=== PATIENT | female | born 1990 | race Caucasian/White ===

== ENCOUNTER 2018-04-06 22:09 | Emergency (ER) | payer OTHER, SELFPAY ==
[2018-04-06] MEDS ORDERED: LORAZEPAM 1 MG TABLET ONE (22:41)
[2018-04-06] MEDS ORDERED: levETIRAcetam 500 MG TAB ONE (22:41)
--- NOTE | 2018-04-06 22:43 | ER ---
Nurse's Notes [facility] Name: Elvi Maria Age: 27 yrs Sex: Female : 1990 Arrival Date: 04/06/2018 Time: 22:09 Bed 4 Private MD: Diagnosis: Seizure disorder. 2nd Trimester Presentation: 04/06 22:10 Presenting complaint: EMS states: they were toned out for report of pt having seizures bb pt has hx of seizures and takes Keppra and Ativan but is out of her medications for approx one month she has had other seizures as well but had two seizures today. Pt is currently at [facility] for alcohol addiction after relapsing 3 weeks ago. Pt is 5 months . Transition of care: patient was received from another setting of care (rehabilitation facility). Onset of symptoms is unknown. Risk Assessment: Do you want to hurt yourself or someone else? Patient reports no desire to harm self or others. Initial Sepsis Screen: Does the patient meet any 2 criteria? No. Patient's initial sepsis screen is negative. Does the patient have a suspected source of infection? No. Patient's initial sepsis screen is negative. 22:10 Method Of Arrival: EMS: [facility] bb 22:10 Acuity: IGOR 2 bb 22:15 Care prior to arrival: Medication(s) given: midazolam 5 mg IM. 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 - Social history:: Smoking status: Patient uses tobacco products, smokes one-half pack cigarettes per day, Patient uses alcohol, patient/guardian reports recent binge of alcohol consumption. Patient uses street drugs, marijuana. - Ebola Screening: : No symptoms or risks identified at this time. Screenin:13 Abuse screen: Denies threats or abuse. Denies injuries from another. Nutritional rr5 screening: No deficits noted. Tuberculosis screening: No symptoms or risk factors identified. Fall Risk Secondary diagnosis (15 points) seizures. Assessment: 22:10 General: Appears in no apparent distress. uncomfortable, . Behavior is calm, rr5 cooperative, appropriate for age, Reports chills for. Pain: Denies pain. Neuro: Level of Consciousness is awake, alert, obeys commands, Oriented to person, place, time, situation, Appropriate for age Custom Miller are equal bilaterally Moves all extremities. Reports. Cardiovascular: Denies chest pain, Capillary refill < 3 seconds Patient's skin is warm and dry. Respiratory: Airway is patent. GI: No signs and/or symptoms were reported involving the gastrointestinal system. Abdomen is for 5 months. on lower quadrant palpable hump. : No signs and/or symptoms were reported regarding the genitourinary system. EENT: No signs and/or symptoms were reported regarding the EENT system. Derm: No signs and/or symptoms reported regarding the dermatologic system. Musculoskeletal: No signs and/or symptoms reported regarding the musculoskeletal system. 22:59 Reassessment: Patient appears in no apparent distress at this time. Patient states rr5 feeling better. Patient states symptoms have improved. Vital Signs: 22:15 BP 123 / 87; Pulse 98; Resp 18 S; Temp 98.8(O); Pulse Ox 100% on R/A; Weight 81.65 kg bb (R); Height 5 ft. 7 in. (170.18 cm) (R); Pain 7/10; 22:59 BP 122 / 74; Pulse 85; Resp 16; Pulse Ox 99% on R/A; rr5 22:15 Body Mass Index 28.19 (81.65 kg, 170.18 cm) bb Vitals: 22:52 Heart Tones 158. aa1 ED Course: 22:09 Patient arrived in ED. al2 22:13 Triage completed. bb 22:15 Arm band placed on Patient placed in an exam room, on a stretcher, on pulse oximetry. bb 22:15 Patient has correct armband on for positive identification. Bed in low position. Side rr5 rails up X2. Seizure precautions initiated. 22:15 No provider procedures requiring assistance completed. Patient did not have IV access rr5 during this emergency room visit. 22:17 Danis Desouza MD is Attending Physician. pkl 22:25 Missed attempt(s): 22 gauge in right forearm. Bleeding controlled, band aid applied, aa1 catheter tip intact. 22:34 Noble, Wilver, RN is Primary Nurse. rr5 Administered Medications: 22:39 Drug: Keppra 500 mg Route: PO; rr5 23:13 Follow up: Response: No adverse reaction rr5 22:39 Drug: Ativan 1 mg Route: PO; rr5 23:13 Follow up: Response: No adverse reaction rr5 Outcome: 22:43 Discharge ordered by . colette 23:14 Admitted to rr5 23:14 Discharged to Rehab Facility 23:14 Condition: stable 23:14 Discharge instructions given to patient, Instructed on discharge instructions, follow up and referral plans. medication usage, Demonstrated understanding of instructions, follow-up care, medications, Prescriptions given X 2. 23:15 Patient left the ED. rr5 Signatures: Tammie Sloan RN RN aa1 Danis Desouza MD MD pkl Ballard, Brenda, RN RN bb Love, Angelica al2 Roque, Raymond RN RN rr5 Corrections: (The following items were deleted from the chart) 23:13 22:10 Care prior to arrival: None. darryl andrews
--- NOTE | 2018-04-06 22:43 | EDPHYS ---
Physician Documentation [facility] Name: Elvi Maria Age: 27 yrs Sex: Female : 1990 Arrival Date: 04/06/2018 Time: 22:09 Bed 4 Private MD: ED Physician Danis Desouza HPI: 04/06 22:31 This 27 yrs old Female presents to ER via EMS with unknown complaint. pkl 22:31 Seizure onset: today. The patient has experienced similar episodes in the past, several pkl times. Patient has been out of medications ( Keppra and Ativan ) for 1 month. Now at [facility] for alcohol addiction. RN INTEGRATED: 22:15 2, Full Term 0, 1, Living 0 bb Historical: - Allergies: 22:15 Seroquel; bb - Home Meds: 22:15 Keppra Oral [Active]; Ativan Oral [Active]; bb - PMHx: 22:15 Seizures; PTSD; bb - PSHx: 22:15 ; bb - Immunization history:: Adult Immunizations unknown. - Social history:: Smoking status: Patient uses tobacco products, smokes one-half pack cigarettes per day, Patient uses alcohol, patient/guardian reports recent binge of alcohol consumption. Patient uses street drugs, marijuana. - Ebola Screening: : No symptoms or risks identified at this time. ROS: 22:35 Eyes: Negative for injury, pain, redness, and discharge, ENT: Negative for injury, pkl pain, and discharge, Neck: Negative for injury, pain, and swelling, Cardiovascular: Negative for chest pain, palpitations, and edema, Respiratory: Negative for shortness of breath, cough, wheezing, and pleuritic chest pain, Abdomen/GI: Negative for abdominal pain, nausea, vomiting, diarrhea, and constipation, Back: Negative for injury and pain, : Negative for injury, bleeding, discharge, and swelling, MS/Extremity: Negative for injury and deformity, Skin: Negative for injury, rash, and discoloration. 22:35 Neuro: Positive for seizure activity. Exam: 22:35 Head/Face: Normocephalic, atraumatic. Eyes: Pupils equal round and reactive to light, pkl extra-ocular motions intact. Lids and lashes normal. Conjunctiva and sclera are non-icteric and not injected. Cornea within normal limits. Periorbital areas with no swelling, redness, or edema. ENT: Nares patent. No nasal discharge, no septal abnormalities noted. Tympanic membranes are normal and external auditory canals are clear. Oropharynx with no redness, swelling, or masses, exudates, or evidence of obstruction, uvula midline. Mucous membranes moist. Neck: Trachea midline, no thyromegaly or masses palpated, and no cervical lymphadenopathy. Supple, full range of motion without nuchal rigidity, or vertebral point tenderness. No Meningismus. Chest/axilla: Normal chest wall appearance and motion. Nontender with no deformity. No lesions are appreciated. Cardiovascular: Regular rate and rhythm with a normal S1 and S2. No gallops, murmurs, or rubs. Normal PMI, no JVD. No pulse deficits. Respiratory: Lungs have equal breath sounds bilaterally, clear to auscultation and percussion. No rales, rhonchi or wheezes noted. No increased work of breathing, no retractions or nasal flaring. Abdomen/GI: Soft, non-tender, with normal bowel sounds. No distension or tympany. No guarding or rebound. No evidence of tenderness throughout. Back: No spinal tenderness. No costovertebral tenderness. Full range of motion. Skin: Warm, dry with normal turgor. Normal color with no rashes, no lesions, and no evidence of cellulitis. MS/ Extremity: Pulses equal, no cyanosis. Neurovascular intact. Full, normal range of motion. Neuro: Awake and alert, GCS 15, oriented to person, place, time, and situation. Cranial nerves II-XII grossly intact. Motor strength 5/5 in all extremities. Sensory grossly intact. Cerebellar exam normal. Normal gait. Vital Signs: 22:15 BP 123 / 87; Pulse 98; Resp 18 S; Temp 98.8(O); Pulse Ox 100% on R/A; Weight 81.65 kg bb (R); Height 5 ft. 7 in. (170.18 cm) (R); Pain 7/10; 22:59 BP 122 / 74; Pulse 85; Resp 16; Pulse Ox 99% on R/A; rr5 22:15 Body Mass Index 28.19 (81.65 kg, 170.18 cm) bb MDM: 22:17 Patient medically screened. pkl 22:35 Data reviewed: vital signs, nurses notes. pkl 11/03 22:35 Order name: Heart Tones; Complete Time: 22:51 pkl 04/06 22:52 Order name: EKG; Complete Time: 22:52 mt 04/06 22:52 Order name: EKG - Nurse/Tech; Complete Time: 22:52 mt Administered Medications: 22:39 Drug: Keppra 500 mg Route: PO; rr5 23:13 Follow up: Response: No adverse reaction rr5 22:39 Drug: Ativan 1 mg Route: PO; rr5 23:13 Follow up: Response: No adverse reaction rr5 Disposition: 04/06/18 22:43 Discharged to Home. Impression: Seizure disorder. 2nd Trimester . - Condition is Stable. - Prescriptions for Ativan 1 mg Oral Tablet - take 1 tablet by ORAL route every 8 hours As needed; 15 tablet. Keppra 500 mg Oral Tablet - take 1 tablet by ORAL route every 12 hours; 10 tablet. - Medication Reconciliation Form, Thank You Letter, Antibiotic Education, Prescription Opioid Use form. - Follow up: Private Physician; When: 2 - 3 days; Reason: Re-evaluation by your physician. - Problem is new. - Symptoms have improved. Signatures: Tammie Sloan RN RN aa1 Danis Desouza MD MD pkl Katia Thayer RN RN Marimar Lowry mt, Raymond, RN RN rr5 Corrections: (The following items were deleted from the chart) 23:15 22:43 04/06/2018 22:43 Discharged to Home. Impression: Seizure disorder. 2nd Trimester rr5 . Condition is Stable. Forms are Medication Reconciliation Form, Thank You Letter, Antibiotic Education, Prescription Opioid Use. Follow up: Private Physician; When: 2 - 3 days; Reason: Re-evaluation by your physician. Problem is new. Symptoms have improved. pkl
--- NOTE | 2018-04-07 06:06 | EKG ---
Test Date: 2018-04-06 Test Time: 22:17:30 Jumbo Operator: VICKIE MEASUREMENT RESULTS: Intervals: Rate: 78 SC: 180 QRSD: 80 QT: 358 QTc: 408 [place]: P: 18 SC: 180 QRS: 47 T: 25 INTERPRETIVE STATEMENTS: Normal sinus rhythm Normal ECG No previous ECG available for comparison Electronically Signed On 04-07-18 06:05:53 GOVERNMENT CONTRACTS MANAGER by Geronimo Dillard
== END 2018-04-06 23:15 | disposition home or self-care (01) ==
LOC: ER 22:09
DX: O99.352 Diseases of the nervous system complicating pregnancy, second trimester (principal); F17.210 Nicotine dependence, cigarettes, uncomplicated; O99.332 Smoking (tobacco) complicating pregnancy, second trimester; Z88.8 Allergy status to other drugs, medicaments and biological substances
CPT/HCPCS: 93005; 99285

== ENCOUNTER 2018-04-12 11:24 | Emergency (ER) | payer OTHER ==
[~2018-04-12 11:24] MED LIST: LORazepam 2 MG/ML VIAL ONE; NA CHLORIDE 0.9% 1,000 ML ONE
--- OUTSIDE RECORDS SUMMARY | 2018-04-12 11:26 | XMS REPORT | Clinical Summary ---
:1990 Author Organization [facility] Address [address] [place] [address] Care Team Providers Name Role Phone Pcp, No Primary Care Provider Unavailable Allergies No Known Allergies Medications Not on file Active Problems Not on file Encounters Date Type Specialty Care Team Description 03/23/2018 Emergency Emergency Medicine after 04/11/2017 Social History Tobacco Use Types Packs/Day Years Used Date Never Assessed Currently Comments Yes Sex Assigned at Date Recorded Not on file Job Start Date Occupation Industry Not on file Not on file Not on file Travel History Travel Start Travel End No recent travel history available. Last Filed Vital Signs Vital Sign Reading Time Taken Blood Pressure 116/56 03/22/2018 10:45 PM CDT Pulse 72 03/22/2018 10:45 PM CDT Temperature 37 C (98.6 F) 03/22/2018 10:45 PM CDT Respiratory Rate 18 03/22/2018 10:45 PM CDT Oxygen Saturation 98% 03/22/2018 10:45 PM CDT Inhaled Oxygen Concentration - - Weight 81.6 kg (180 lb) 03/22/2018 10:45 PM CDT Height 170.2 cm (5' 7") 03/22/2018 10:45 PM CDT Body Mass Index 28.19 03/22/2018 10:45 PM CDT Plan of Treatment Not on file Results Not on fileafter 04/11/2017 Insurance Payer Benefit Plan / Subscriber ID Type Phone Address Group MEDICAID - MEDICAID [facility] xxxxxxxxx Medicaid Contracted [employer] C[employer] PLAN
[2018-04-12] MEDS ORDERED: levETIRAcetam 1,000 MG in NA CHLORIDE 0.9% 100 ML IV SCH (11:45)
[2018-04-12] MEDS ORDERED: Magnesium Sulfate 2gm IVPB 2 G/50 ML BAG IV ONE (11:46)
[2018-04-12] MEDS ORDERED: LORazepam 2 MG/ML VIAL ONE (11:46)
[2018-04-12 11:54] LABS: Absolute Lymphocytes (CBC) 1.4 K/uL (0.7-4.9); Absolute Monocytes 0.5 K/uL (0.1-1.3); Absolute Neutrophil 5.7 K/uL (1.8-8.0); Basophils % 0.5 % (0-1.3); Eosinophils % 0.1 % (0-4.4); Hematocrit 34.4 % (36.0-45.0); Lymphocytes % 18.2 % (15.3-44.8); MCH 32.2 pg (27.0-35.0); MCV 92.6 fL (80-100); Monocytes % 5.9 % (3.3-12.3); RBC Red Blood Cell Count 3.71 M/uL (3.86-4.86)
[2018-04-12] MEDS ORDERED: METOCLOPRAMIDE 10 MG/2mL INJ ONE (11:57)
[2018-04-12] MEDS ORDERED: hydrOXYzine HCl 50 MG/ML VIAL IM ONE (11:57)
[2018-04-12 12:15] LABS: ALT/SGPT 15 U/L (12-78); AST/SGOT 17 U/L (15-37); Albumin 3.5 g/dL (3.4-5.0); Alkaline Phosphatase 69 U/L (45-117); BUN Blood Urea Nitrogen 5 mg/dL (7-18); Bicarbonate 22 mmol/L (21-32); Bilirubin Direct < 0.1 mg/dL (0-0.2); Bilirubin Total 0.1 mg/dL (0.2-1.0); Glucose Level 81 mg/dL (74-106); Protein, Total 7.5 g/dL (6.4-8.2); Sodium Level 138 mmol/L (136-145)
--- NOTE | 2018-04-12 15:46 | EDPHYS ---
Physician Documentation [facility] Name: Elvi Maria Age: 27 yrs Sex: Female : 1990 Arrival Date: 04/12/2018 Time: 11:31 Bed 3 Private MD: ED Physician Robby Caballero HPI: 04/12 13:17 This 27 yrs old Female presents to ER via EMS with complaints of Seizure. jr8 13:17 The patient presents with a history of multiple seizures, a total of 5, that last 30 jr8 second(s). Character of seizure(s): Loss of consciousness: the patient experienced loss of consciousness, Motor activity: generalized. Seizure onset: Longstanding history of seizures . Context: the seizure(s) was witnessed, Rehab staff. Current symptoms: headache, that is moderate. The patient has experienced similar episodes in the past, several times. The patient has not recently seen a physician. History of PTSD, anxiety, seizures. Usually has increase in seizures with stress. Has been more stressed today with counseling session. Had several seizures before EMS arrived. 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 - Social history:: Smoking status: unknown. - Ebola Screening: : No symptoms or risks identified at this time. ROS: 13:17 Eyes: Negative for injury, pain, redness, and discharge, ENT: Negative for injury, jr8 pain, and discharge, Neck: Negative for injury, pain, and swelling, Cardiovascular: Negative for chest pain, palpitations, and edema, Respiratory: Negative for shortness of breath, cough, wheezing, and pleuritic chest pain, Abdomen/GI: Negative for abdominal pain, nausea, vomiting, diarrhea, and constipation, Back: Negative for injury and pain, MS/Extremity: Negative for injury and deformity, Skin: Negative for injury, rash, and discoloration. 13:17 Neuro: Positive for headache, seizure activity. Exam: 13:17 Head/Face: Normocephalic, atraumatic. Eyes: Pupils equal round and reactive to light, jr8 extra-ocular motions intact. Lids and lashes normal. Conjunctiva and sclera are non-icteric and not injected. Cornea within normal limits. Periorbital areas with no swelling, redness, or edema. ENT: Nares patent. No nasal discharge, no septal abnormalities noted. Tympanic membranes are normal and external auditory canals are clear. Oropharynx with no redness, swelling, or masses, exudates, or evidence of obstruction, uvula midline. Mucous membranes moist. Neck: Trachea midline, no thyromegaly or masses palpated, and no cervical lymphadenopathy. Supple, full range of motion without nuchal rigidity, or vertebral point tenderness. No Meningismus. Cardiovascular: Regular rate and rhythm with a normal S1 and S2. No gallops, murmurs, or rubs. Normal PMI, no JVD. No pulse deficits. Respiratory: Lungs have equal breath sounds bilaterally, clear to auscultation and percussion. No rales, rhonchi or wheezes noted. No increased work of breathing, no retractions or nasal flaring. Abdomen/GI: Soft, non-tender, with normal bowel sounds. No distension or tympany. No guarding or rebound. No evidence of tenderness throughout. Back: No spinal tenderness. No costovertebral tenderness. Full range of motion. Skin: Warm, dry with normal turgor. Normal color with no rashes, no lesions, and no evidence of cellulitis. MS/ Extremity: Pulses equal, no cyanosis. Neurovascular intact. Full, normal range of motion. 13:17 Neuro: Orientation: to person, place \T\ time. Mentation: is normal, Memory: is normal, Cranial nerves: CN I not tested, CN II- XII are normal as tested, visual moore are intact. extraocular movements are intact, Facial palsy and sensory deficits are absent. Cerebellar function: normal finger to nose testing, heel to lee testing is normal, Motor: moves all fours, Sensation: is normal, seizure activity, is not displayed by the patient, Abnormal movements: there are no abnormal movements. Vital Signs: 11:25 BP 99 / 70; Pulse 70; Resp 16; Pulse Ox 100% ; Weight 81.65 kg; Height 5 ft. 7 in. sv (170.18 cm); Pain 10/10; 12:00 BP 108 / 70; Pulse 93; Resp 18; Pulse Ox 97% on R/A; sv 13:30 BP 105 / 67; Pulse 85; Resp 16; Pulse Ox 99% ; sv 14:57 BP 98 / 51; Pulse 87; Resp 17; Pulse Ox 97% on R/A; jb1 16:15 BP 108 / 71; Pulse 90; Resp 16; Pulse Ox 99% ; sv 11:25 Body Mass Index 28.19 (81.65 kg, 170.18 cm) sv Gil Coma Score: 11:20 Eye Response: spontaneous(4). Verbal Response: oriented(5). Motor Response: obeys sv commands(6). Total: 15. MDM: 11:31 Patient medically screened. jr8 13:17 ED course: Patient has two other seizures while in our care. Now sleeping after being jr8 medicated and without seizure for past 1 hour. 13:26 ED course: Consulted patients reconsignment clerk Dr. Cunha. From a stand point jr8 she is ok. FHT 150. No cramping, pain, or bleeding. 14:36 Data reviewed: vital signs, nurses notes, lab test result(s). Data interpreted: Pulse jr8 oximetry: on room air is 97 %. Interpretation: normal. Counseling: I had a detailed discussion with the patient and/or guardian regarding: the historical points, exam findings, and any diagnostic results supporting the discharge/admit diagnosis, lab results. 15:43 ED course: Patient without seizures since she was medicated last. Feeling much better. violet Does not want to be admitted or transferred for observation because of the seizures. Would come back if worse. . 04/12 11:32 Order name: Basic Metabolic Panel; Complete Time: 12:28 jr8 04/12 11:32 Order name: CBC with Diff; Complete Time: 12:13 jr8 04/12 11:32 Order name: ETOH Level; Complete Time: 12:28 jr8 04/12 11:32 Order name: Hepatic Function; Complete Time: 12:28 jr8 04/12 14:47 Order name: Glucose, Ancillary Testing; Complete Time: 14:56 EDMS 04/12 11:32 Order name: EKG; Complete Time: 11:33 jr8 04/12 11:32 Order name: EKG - Nurse/Tech; Complete Time: 12:00 jr8 04/12 11:32 Order name: IV Saline Lock; Complete Time: 11:45 jr8 04/12 11:32 Order name: Labs collected and sent; Complete Time: 11:45 Administered Medications: 11:32 Drug: Ativan 1 mg Route: IVP; Site: right antecubital; sv 12:00 Follow up: Response: No adverse reaction sv 11:35 Drug: NS 0.9% 1000 ml Route: IV; Rate: 125 ml/hr; Site: right antecubital; sv 16:35 Follow up: Response: No adverse reaction; IV Status: Order to discontinue infusion sv 11:35 Drug: Ativan 1 mg Route: IVP; Site: right antecubital; sv 12:00 Follow up: Response: No adverse reaction sv 11:40 Drug: Ativan 2 mg Route: IVP; Site: right antecubital; sv 12:00 Follow up: Response: No adverse reaction sv 11:40 CANCELLED (Duplicate Order): Ativan 2 mg IVP once sv 11:47 Drug: Keppra 1000 mg Route: IV; Rate: calculated rate; Site: left antecubital; sv 12:06 Follow up: Response: No adverse reaction; IV Status: Completed infusion; IV Intake: sv 100ml 12:10 Follow up: Response: No adverse reaction; IV Status: Completed infusion; IV Intake: sv 100ml 11:58 Drug: Reglan 10 mg Route: IVP; Site: right antecubital; sv 12:30 Follow up: Response: No adverse reaction sv 11:58 Drug: hydrOXYzine 25 mg {Note: given IM to right deltoid..} Route: PO; sv 12:30 Follow up: Response: No adverse reaction sv 16:28 Not Given (Physician Discretion): Tylenol 1000 mg PO once ss Point of Care Testing: Blood Glucose: 11:30 Blood Glucose: 89 mg/dL; sv Ranges: Critical Glucose Levels:Adult <50 mg/dl or >400 mg/dl <40 mg/dl or >180 mg/dl Disposition: 04/12/18 15:45 Discharged to Home. Impression: Epilepsy and recurrent seizures. - Condition is Stable. - Discharge Instructions: Seizure, Adult. - Medication Reconciliation Form, Thank You Letter, Antibiotic Education, Prescription Opioid Use form. - Follow up: Private Physician; When: 2 - 3 days; Reason: Recheck today's complaints, Continuance of care, Re-evaluation by your physician. - Problem is new. - Symptoms have improved. Addendum: 04/15/2018 06:51 Co-signature as Attending Physician, Robby Caballero MD I agree with the assessment and c vazquez plan of care. Signatures: Dispatcher [employer] Alexandra Rachel, RN RN Robby Caballero MD MD cha Smirch, Shelby, RN RN ss Galo Reynolds PA PA jr8 Corrections: (The following items were deleted from the chart) 04/12 11:40 11:40 Ativan 2 mg IVP once ordered. jr8 16:28 15:45 04/12/2018 15:45 Discharged to Home. Impression: Epilepsy and recurrent seizures. ss Condition is Stable. Forms are Medication Reconciliation Form, Thank You Letter, Antibiotic Education, Prescription Opioid Use. Follow up: Private Physician; When: 2 - 3 days; Reason: Recheck today's complaints, Continuance of care, Re-evaluation by your physician. Problem is new. Symptoms have improved. jr8
--- NOTE | 2018-04-12 15:46 | ER ---
Nurse's Notes [facility] Name: Elvi Maria Age: 27 yrs Sex: Female : 1990 Arrival Date: 04/12/2018 Time: 11:31 Bed 3 Private MD: Diagnosis: Epilepsy and recurrent seizures Presentation: 04/12 11:20 Presenting complaint: EMS states: 2 seizures before arrival and another [address] lasting about 15 seconds each. Midazolam 5 mg nasally given. Pt is 5 months . Stated she is in a drug rehab and started having anxiety and stress and that triggered the seizure. BP 140/78 HR-140 BS-95. c/o headache and body soreness. Transition of care: patient was not received from another setting of care. Onset of symptoms was April 12, 2018. 11:20 Method Of Arrival: EMS: [facility] sv 11:20 Acuity: IGOR 2 sv 11:20 Risk Assessment: Do you want to hurt yourself or someone else? Patient reports no sv desire to harm self or others. Initial Sepsis Screen: Does the patient meet any 2 criteria? No. Patient's initial sepsis screen is negative. Does the patient have a suspected source of infection? No. Patient's initial sepsis screen is negative. Care prior to arrival: see triage note. Triage Assessment: 11:20 General: Appears in no apparent distress. uncomfortable, well developed, Behavior is sv calm, cooperative, appropriate for age. Pain: Complains of pain in face and scalp Pain currently is 10 out of 10 on a pain scale. Quality of pain is described as pressure, throbbing, Is continuous. EENT: No signs and/or symptoms were reported regarding the EENT system. Neuro: Level of Consciousness is awake, alert, obeys commands, Oriented to person, place, time, situation, Moves all extremities. Full function Speech is normal. Cardiovascular: Patient's skin is warm and dry. Respiratory: Respiratory effort is even, unlabored, Respiratory pattern is regular, symmetrical. GI: No signs and/or symptoms were reported involving the gastrointestinal system. : No signs and/or symptoms were reported regarding the genitourinary system. Derm: Skin is normal. Musculoskeletal: No signs and/or symptoms reported regarding the musculoskeletal system. 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 - Social history:: Smoking status: unknown. - Ebola Screening: : No symptoms or risks identified at this time. Screenin:30 Abuse screen: Denies threats or abuse. Denies injuries from another. Nutritional ss screening: No deficits noted. Tuberculosis screening: Never had TB. Fall Risk Fall in past 12 months (25 points). Secondary diagnosis (15 points) seizures, IV access (20 points). Ambulatory Aid- None/Bed Rest/Nurse Assist (0 pts). Gait- Normal/Bed Rest/Wheelchair (0 pts) Mental Status- Oriented to own ability (0 pts). Assessment: 11:30 Neuro: Seizure activity noted at this time. Type of seizure: grand mal seizure. sv 11:34 Neuro: Seizure activity noted at this time. Type of seizure: grand mal seizure. sv 11:38 Neuro: Seizure activity noted at this time. Type of seizure: grand mal seizure. sv 12:00 Reassessment: Patient appears in no apparent distress at this time. Patient and/or sv family updated on plan of care and expected duration. Pain level reassessed. Patient is alert, oriented x 3, equal unlabored respirations, skin warm/dry/pink. 12:15 Reassessment: Music turned on for the pt at bedside to help with her anxiety at this sv time. 13:00 Reassessment: Patient appears in no apparent distress at this time. Pt appears to be sv resting with eyes closed, respirations even and unlabored. 14:20 Reassessment: Pt appears to be resting with eyes closed, respirations even and sv unlabored. 15:15 Reassessment: Pt appears to be resting with eyes closed, respirations even and sv unlabored. 16:25 Reassessment: Patient appears in no apparent distress at this time. Patient and/or sv family updated on plan of care and expected duration. Pain level reassessed. Patient is alert, oriented x 3, equal unlabored respirations, skin warm/dry/pink. Patient denies pain at this time. Patient states feeling better. Vital Signs: 11:25 BP 99 / 70; Pulse 70; Resp 16; Pulse Ox 100% ; Weight 81.65 kg; Height 5 ft. 7 in. sv (170.18 cm); Pain 10/10; 12:00 BP 108 / 70; Pulse 93; Resp 18; Pulse Ox 97% on R/A; sv 13:30 BP 105 / 67; Pulse 85; Resp 16; Pulse Ox 99% ; sv 14:57 BP 98 / 51; Pulse 87; Resp 17; Pulse Ox 97% on R/A; jb1 16:15 BP 108 / 71; Pulse 90; Resp 16; Pulse Ox 99% ; sv 11:25 Body Mass Index 28.19 (81.65 kg, 170.18 cm) sv Vitals: 11:32 Heart Tones 150. sv Gil Coma Score: 11:20 Eye Response: spontaneous(4). Verbal Response: oriented(5). Motor Response: obeys sv commands(6). Total: 15. ED Course: 11:25 Initial lab(s) drawn, by ma, sent to lab. Inserted saline lock: 22 gauge in right sv antecubital area, using aseptic technique. ,using aseptic technique. done by Heide SANCHEZ Blood collected. 11:30 Patient has correct armband on for positive identification. Placed in gown. Bed in low ss position. Call light in reach. Side rails up X2. Seizure precautions initiated. equipment monitor phototypesetting on. Pulse ox on. NIBP on. Warm blanket given. 11:30 Arm band placed on. sv 11:31 Patient arrived in ED. sv 11:31 Robby Caballero MD is Attending Physician. dom 11:31 Galo Reynolds PA is PHCP. jr8 11:31 Robby Caballero MD is Attending Physician. jr8 11:31 Alexandra Seymour RN is Primary Nurse. sv 11:39 Triage completed. sv 11:55 Inserted saline lock: 20 gauge in left antecubital area, using aseptic technique. sv ,using aseptic technique. done by [facility]. 13:[address] Cunha for Galo CÁRDENAS at [phone]/ his office called him and gave his eb personal cell to call. 16:28 No provider procedures requiring assistance completed. IV discontinued, intact, ss bleeding controlled, No redness/swelling at site. Pressure dressing applied. Administered Medications: 11:32 Drug: Ativan 1 mg Route: IVP; Site: right antecubital; sv 12:00 Follow up: Response: No adverse reaction sv 11:35 Drug: NS 0.9% 1000 ml Route: IV; Rate: 125 ml/hr; Site: right antecubital; sv 16:35 Follow up: Response: No adverse reaction; IV Status: Order to discontinue infusion sv 11:35 Drug: Ativan 1 mg Route: IVP; Site: right antecubital; sv 12:00 Follow up: Response: No adverse reaction sv 11:40 Drug: Ativan 2 mg Route: IVP; Site: right antecubital; sv 12:00 Follow up: Response: No adverse reaction sv 11:40 CANCELLED (Duplicate Order): Ativan 2 mg IVP once sv 11:47 Drug: Keppra 1000 mg Route: IV; Rate: calculated rate; Site: left antecubital; sv 12:06 Follow up: Response: No adverse reaction; IV Status: Completed infusion; IV Intake: sv 100ml 12:10 Follow up: Response: No adverse reaction; IV Status: Completed infusion; IV Intake: sv 100ml 11:58 Drug: Reglan 10 mg Route: IVP; Site: right antecubital; sv 12:30 Follow up: Response: No adverse reaction sv 11:58 Drug: hydrOXYzine 25 mg {Note: given IM to right deltoid..} Route: PO; sv 12:30 Follow up: Response: No adverse reaction sv 16:28 Not Given (Physician Discretion): Tylenol 1000 mg PO once ss Point of Care Testing: Blood Glucose: 11:30 Blood Glucose: 89 mg/dL; sv Ranges: Intake: 12:06 IV: 100ml; Total: 100ml. sv 12:10 IV: 100ml; Total: 200ml. sv Outcome: 15:45 Discharge ordered by MD. lazo 16:28 Patient left the ED. ss 16:28 Discharged to home via wheelchair, with friend. sv 16:28 Condition: stable 16:28 Discharge instructions given to patient, Instructed on discharge instructions, follow up and referral plans. Demonstrated understanding of instructions, follow-up care. Signatures: Vin Pope1 Alexandra Seymour RN RN sv Anderson, Corey, MD MD cha Smirch, Shelby, RN RN ss Roszak, Josh, PA PA jr8 Aliyah Rogers
--- NOTE | 2018-04-12 18:46 | EKG ---
Test Date: 2018-04-12 Test Time: 11:58:08 Bead Wrapper: MAMTA MEASUREMENT RESULTS: Intervals: Rate: 106 [place]: 150 QRSD: 78 QT: 324 QTc: 430 [place]: P: 58 [place]: 150 QRS: 71 T: 42 INTERPRETIVE STATEMENTS: Sinus tachycardia Otherwise normal ECG Compared to ECG 04/06/2018 22:17:30 Sinus rhythm no longer present Electronically Signed On 04-12-18 18:44:50 SVP RESEARCH & EBUSINESS OPERATIONS by Juan Meraz
== END 2018-04-12 16:28 | disposition home or self-care (01) ==
LOC: ER 11:24
DX: G40.802 Other epilepsy, not intractable, without status epilepticus (principal); F41.9 Anxiety disorder, unspecified; F43.10 Post-traumatic stress disorder, unspecified; Z88.8 Allergy status to other drugs, medicaments and biological substances; Z3A.20 20 weeks gestation of pregnancy
CPT/HCPCS: 36415; 80048; 80076; 80320; 82962; 85025; 93005; 96361; 96365; 96375; 99285; J1953; J2765; J3410; J3475; J7030

== ENCOUNTER 2018-04-13 20:01 | Emergency (ER) | payer OTHER ==
--- OUTSIDE RECORDS SUMMARY | 2018-04-13 20:03 | XMS REPORT | Clinical Summary ---
:1990 Author Organization [facility] Address [address] [place] [address] Care Team Providers Name Role Phone Pcp, No Primary Care Provider Unavailable Allergies No Known Allergies Medications Not on file Active Problems Not on file Encounters Date Type Specialty Care Team Description 03/23/2018 Emergency Emergency Medicine after 04/12/2017 Social History Tobacco Use Types Packs/Day Years [...] Not on file Results Not on fileafter 04/12/2017 Insurance Payer Benefit Plan / Subscriber ID Type Phone Address Group MEDICAID - MEDICAID [facility] xxxxxxxxx Medicaid Contracted [employer] CARE PLAN
--- NOTE | 2018-04-13 20:14 | ER ---
Nurse's Notes [facility] Name: Elvi Maria Age: 27 yrs Sex: Female : 1990 Arrival Date: 04/13/2018 Time: 20:02 Bed 30 Private MD: Diagnosis: Epilepsy and recurrent seizures; related exhaustion and fatigue, second trimester;Hypoglycemia, unspecified Presentation: 04/13 20:02 Presenting complaint: EMS states: they were toned out for report of pt having seizures, bb pt is 5 months . Transition of care: [facility]. Onset of symptoms was April 13, 2018. Risk Assessment: Do you want to hurt yourself or someone else? Patient reports no desire to harm self or others. Initial Sepsis Screen: Does the patient meet any 2 criteria? No. Patient's initial sepsis screen is negative. Does the patient have a suspected source of infection? No. Patient's initial sepsis screen is negative. Care prior to arrival: None. 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 - Social history:: Smoking status: Patient uses tobacco products, smokes one-half pack cigarettes per day, Patient uses alcohol, street drugs. - Ebola Screening: : No symptoms or risks identified at this time. - Family history:: not pertinent. Screenin:07 Abuse screen: Denies threats or abuse. Denies injuries from another. Nutritional mg2 screening: No deficits noted. Tuberculosis screening: No symptoms or risk factors identified. Fall Risk Secondary diagnosis (15 points) seizures, IV access (20 points). Assessment: 20:30 General: Appears in no apparent distress. comfortable, Behavior is calm, cooperative. mg2 Pain: Complains of pain in head. Neuro: Level of Consciousness is awake, alert, obeys commands, Oriented to person, place, time, situation. Neuro: Seizure activity Type of seizure: tonic-clonic seizure. Seizure lasted approximately 1 minutes. x3. Cardiovascular: Capillary refill < 3 seconds Patient's skin is warm and dry. Respiratory: Airway is patent Respiratory effort is even, unlabored, Respiratory pattern is regular, symmetrical. GI: Abdomen is . : No signs and/or symptoms were reported regarding the genitourinary system. EENT: No signs and/or symptoms were reported regarding the EENT system. Derm: Skin is intact, is healthy with good turgor, Skin is pink, warm \T\ dry. normal. Musculoskeletal: Circulation, motion, and sensation intact. Capillary refill < 3 seconds. 20:42 Reassessment: pt had third seizure since arriving lasting 75 seconds, rolled on side tl3 suction provided, pt postictal for 40 seconds. 20:53 Reassessment: report given to DANIEL Boudreaux [facility]. mg2 21:15 Neuro: Seizure activity Type of seizure: tonic-clonic seizure. Seizure lasted mg2 approximately 0.5 minutes. Vital Signs: 20:06 BP 114 / 78; Pulse 99; Resp 24 S; Temp 98.9(O); Pulse Ox 99% on R/A; Weight 81.65 kg bb (R); Height 5 ft. 7 in. (170.18 cm) (R); Pain 8/10; 21:07 BP 114 / 72; Pulse 77; Resp 18; Pulse Ox 100% on 15% Non-rebreather mask; Pain 4/10; mg2 21:24 BP 108 / 64; Pulse 81; Resp 18; Pulse Ox 100% on 15% Non-rebreather mask; Pain 4/10; mg2 20:06 Body Mass Index 28.19 (81.65 kg, 170.18 cm) bb Vitals: 20:41 Heart Tones 140. tl3 Gil Coma Score: 20:06 Eye Response: spontaneous(4). Verbal Response: oriented(5). Motor Response: obeys bb commands(6). Total: 15. ED Course: 20:02 Patient arrived in ED. bb 20:02 Robby Caballero MD is Attending Physician. [facility] 20:04 Triage completed. bb 20:06 Arm band placed on Patient placed in an exam room, on a stretcher, on manager case management, bb on pulse oximetry. 20:12 Lj Trujillo, RN is Primary Nurse. mg2 21:06 Inserted saline lock: 22 gauge in left forearm, using aseptic technique. Blood tl2 collected. 21:06 No provider procedures requiring assistance completed. Inserted saline lock: 20 gauge mg2 in left hand, using aseptic technique. Blood collected. 21:11 Seizure precautions initiated. Door closed. Warm blanket given. mg2 21:25 Inserted saline lock: 22 gauge in left forearm, using aseptic technique. Blood mg2 collected. 21:48 Patient transferred, IV remains in place. mg2 Administered Medications: 20:37 Drug: Keppra 500 mg Route: IV; Rate: per protocol; Infused Over: 15 mins; Site: left tl3 hand; Delivery: Primary tubing; 21:46 Follow up: Response: No adverse reaction; Marked relief of symptoms mg2 21:46 Follow up: Response: No adverse reaction; Marked relief of symptoms; IV Status: mg2 Completed infusion 20:37 Drug: Keppra 500 mg Route: IV; Rate: per protocol; Site: left hand; Delivery: Primary tl3 tubing; 21:45 Follow up: Response: No adverse reaction; Marked relief of symptoms mg2 21:46 Follow up: Response: No adverse reaction; Marked relief of symptoms; IV Status: mg2 Completed infusion 20:37 Drug: Ativan 1 mg Route: IVP; Infused Over: 1 mins; Site: left hand; tl3 21:44 Follow up: Response: No adverse reaction; Other mg2 20:38 Drug: NS 0.9% 1000 ml Route: IV; Rate: 1 bolus; Site: left hand; Delivery: Primary tl3 tubing; 21:47 Follow up: Response: No adverse reaction; Marked relief of symptoms; IV Status: mg2 Completed infusion 20:39 Drug: Ativan 1 mg Route: IVP; Infused Over: 1 mins; Site: left hand; tl3 21:46 Follow up: Response: No adverse reaction; Marked relief of symptoms mg2 21:43 Not Given (EMS to give 1/2 amp D50, VO per Dr. Caballero): D50W 25 ml IVP once; (0.5 amp)tl2 Outcome: 20:13 ER care complete, transfer ordered by MD. fernandes 21:48 Transferred by ground EMS to [facility], Transfer form mg2 completed. 21:48 Condition: improved 21:48 Instructed on the need for transfer, Demonstrated understanding of instructions. 21:49 Patient left the ED. mg2 Signatures: Robby Caballero MD MD cha Ballard, Brenda, RN RN bb Marie Beaver, RN RN tl2 Olga Pagan, DANIEL RN tl3 Lj Trujillo RN RN mg2
--- NOTE | 2018-04-13 20:14 | EDPHYS ---
Physician Documentation [facility] Name: Elvi Maria Age: 27 yrs Sex: Female : 1990 Arrival Date: 04/13/2018 Time: 20:02 Bed 30 Private MD: ED Physician Robby Caballero HPI: 04/13 20:04 This 27 yrs old Female presents to ER via EMS with complaints of Seizure. dom 20:04 The patient presents with a history of multiple seizures, a total of 5. Character of dom seizure(s): Loss of consciousness: the patient experienced loss of consciousness, Motor activity: generalized, Incontinence: none, Apnea: the patient did not experience apnea, Circulation: the patient did not experience evidence of pulse disturbance. Seizure onset: just prior to arrival. Context: the seizure(s) was witnessed, by a bystander, by co-worker(s), occurred treatment center. Seizure Hx: the patient has no previous seizure history. Associated injury: The patient did not suffer any apparent associated injury. EMS care: Ativan, IM. Current symptoms: Currently, the patient is not experiencing any symptoms, the patient feels back to baseline. The patient has experienced similar episodes in the past, multiple times. 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 - Social history:: Smoking status: Patient uses tobacco products, smokes one-half pack cigarettes per day, Patient uses alcohol, street drugs. - Ebola Screening: : No symptoms or risks identified at this time. - Family history:: not pertinent. ROS: 20:04 Constitutional: Negative for fever, chills, and weight loss, Eyes: Negative for injury, dom pain, redness, and discharge, ENT: Negative for injury, pain, and discharge, Neck: Negative for injury, pain, and swelling, Cardiovascular: Negative for chest pain, palpitations, and edema, Respiratory: Negative for shortness of breath, cough, wheezing, and pleuritic chest pain, Abdomen/GI: Negative for abdominal pain, nausea, vomiting, diarrhea, and constipation, Back: Negative for injury and pain, : Negative for injury, bleeding, discharge, and swelling, MS/Extremity: Negative for injury and deformity, Skin: Negative for injury, rash, and discoloration, Psych: Negative for depression, anxiety, suicide ideation, homicidal ideation, and hallucinations, Allergy/Immunology: Negative for hives, rash, and allergies, Endocrine: Negative for neck swelling, polydipsia, polyuria, polyphagia, and marked weight changes, Hematologic/Lymphatic: Negative for swollen nodes, abnormal bleeding, and unusual bruising. 20:04 Neuro: Positive for seizure activity. Exam: 20:04 Constitutional: This is a well developed, well nourished patient who is awake, alert, dom and in no acute distress. Head/Face: Normocephalic, atraumatic. Eyes: Pupils equal round and reactive to light, extra-ocular motions intact. Lids and lashes normal. Conjunctiva and sclera are non-icteric and not injected. Cornea within normal limits. Periorbital areas with no swelling, redness, or edema. ENT: Nares patent. No nasal discharge, no septal abnormalities noted. Tympanic membranes are normal and external auditory canals are clear. Oropharynx with no redness, swelling, or masses, exudates, or evidence of obstruction, uvula midline. Mucous membranes moist. Neck: Trachea midline, no thyromegaly or masses palpated, and no cervical lymphadenopathy. Supple, full range of motion without nuchal rigidity, or vertebral point tenderness. No Meningismus. Chest/axilla: Normal chest wall appearance and motion. Nontender with no deformity. No lesions are appreciated. Cardiovascular: Regular rate and rhythm with a normal S1 and S2. No gallops, murmurs, or rubs. Normal PMI, no JVD. No pulse deficits. Respiratory: Lungs have equal breath sounds bilaterally, clear to auscultation and percussion. No rales, rhonchi or wheezes noted. No increased work of breathing, no retractions or nasal flaring. Abdomen/GI: Soft, non-tender, with normal bowel sounds. No distension or tympany. No guarding or rebound. No evidence of tenderness throughout. Back: No spinal tenderness. No costovertebral tenderness. Full range of motion. Female : Normal external genitalia. Skin: Warm, dry with normal turgor. Normal color with no rashes, no lesions, and no evidence of cellulitis. MS/ Extremity: Pulses equal, no cyanosis. Neurovascular intact. Full, normal range of motion. Neuro: Awake and alert, GCS 15, oriented to person, place, time, and situation. Cranial nerves II-XII grossly intact. Motor strength 5/5 in all extremities. Sensory grossly intact. Cerebellar exam normal. Normal gait. Psych: Awake, alert, with orientation to person, place and time. Behavior, mood, and affect are within normal limits. Vital Signs: 20:06 BP 114 / 78; Pulse 99; Resp 24 S; Temp 98.9(O); Pulse Ox 99% on R/A; Weight 81.65 kg bb (R); Height 5 ft. 7 in. (170.18 cm) (R); Pain 8/10; 21:07 BP 114 / 72; Pulse 77; Resp 18; Pulse Ox 100% on 15% Non-rebreather mask; Pain 4/10; mg2 21:24 BP 108 / 64; Pulse 81; Resp 18; Pulse Ox 100% on 15% Non-rebreather mask; Pain 4/10; mg2 20:06 Body Mass Index 28.19 (81.65 kg, 170.18 cm) bb Gil Coma Score: 20:06 Eye Response: spontaneous(4). Verbal Response: oriented(5). Motor Response: obeys bb commands(6). Total: 15. MDM: 20:02 Patient medically screened. [facility] 20:13 Data reviewed: vital signs, nurses notes, lab test result(s), EKG. [facility] 04/13 20:04 Order name: Acetaminophen; Complete Time: 21:40 [facility] 04/13 20:04 Order name: Basic Metabolic Panel; Complete Time: 21:40 [facility] 04/13 20:04 Order name: CBC with Diff; Complete Time: 20:41 [facility] 04/13 20:04 Order name: ETOH Level; Complete Time: 21:00 [facility] 04/13 20:04 Order name: Hepatic Function; Complete Time: 21:40 [facility] 04/13 20:04 Order name: PT-INR; Complete Time: 21:00 [facility] 04/13 20:04 Order name: Ptt, Activated; Complete Time: 21:00 [facility] 04/13 20:04 Order name: Salicylate; Complete Time: 21:40 [facility] 04/13 20:04 Order name: Urine Drug Screen 04/13 20:04 Order name: Urine Test (obtain specimen); Complete Time: 21:47 [facility] 04/13 20:04 Order name: EKG; Complete Time: 20:05 [facility] 04/13 20:04 Order name: EKG - Nurse/Tech; Complete Time: 21:06 [facility] 04/13 20:04 Order name: IV Saline Lock; Complete Time: 21:06 [facility] 04/13 20:04 Order name: Labs collected and sent; Complete Time: 21:06 [facility] 04/13 20:04 Order name: Urine Dipstick-Ancillary (obtain specimen); Complete Time: 21:47 [facility] 04/13 20:04 Order name: FHT's; Complete Time: 20:39 [facility] 04/13 20:04 Order name: Seizure Precautions; Complete Time: 20:15 [facility] Administered Medications: 20:37 Drug: Keppra 500 mg Route: IV; Rate: per protocol; Infused Over: 15 mins; Site: left tl3 hand; Delivery: Primary tubing; 21:46 Follow up: Response: No adverse reaction; Marked relief of symptoms mg2 21:46 Follow up: Response: No adverse reaction; Marked relief of symptoms; IV Status: mg2 Completed infusion 20:37 Drug: Keppra 500 mg Route: IV; Rate: per protocol; Site: left hand; Delivery: Primary tl3 tubing; 21:45 Follow up: Response: No adverse reaction; Marked relief of symptoms mg2 21:46 Follow up: Response: No adverse reaction; Marked relief of symptoms; IV Status: mg2 Completed infusion 20:37 Drug: Ativan 1 mg Route: IVP; Infused Over: 1 mins; Site: left hand; tl3 21:44 Follow up: Response: No adverse reaction; Other mg2 20:38 Drug: NS 0.9% 1000 ml Route: IV; Rate: 1 bolus; Site: left hand; Delivery: Primary tl3 tubing; 21:47 Follow up: Response: No adverse reaction; Marked relief of symptoms; IV Status: mg2 Completed infusion 20:39 Drug: Ativan 1 mg Route: IVP; Infused Over: 1 mins; Site: left hand; tl3 21:46 Follow up: Response: No adverse reaction; Marked relief of symptoms mg2 21:43 Not Given (EMS to give 1/2 amp D50, VO per Dr. Caballero): D50W 25 ml IVP once; (0.5 amp)tl2 Disposition: 04/13/18 20:13 Transfer ordered to [facility]. Diagnosis are Epilepsy and recurrent seizures, related exhaustion and fatigue, second trimester, Hypoglycemia, unspecified. - Reason for transfer: Higher level of care. - Accepting physician is to [facility]. - Condition is Fair. - Problem is new. - Symptoms have improved. Signatures: Dispatcher [employer] EDRobby Rai MD MD cha Ballard, Brenda, RN RN bb Olga Pagan, RN RN tl3 Lj Trujillo, RN RN mg2 Marie Beaver RN tl2 Corrections: (The following items were deleted from the chart) 21:41 20:13 04/13/2018 20:13 Transfer ordered to [facility]. Diagnosis is Epilepsy and dom recurrent seizures; related exhaustion and fatigue, second trimester. Reason for transfer: Higher level of care. Accepting physician is to [facility]. Condition is Fair. Problem is new. Symptoms have improved. dom 21:49 21:41 04/13/2018 20:13 Transfer ordered to [facility]. Diagnosis is Epilepsy and mg2 recurrent seizures; related exhaustion and fatigue, second trimester; Hypoglycemia, unspecified. Reason for transfer: Higher level of care. Accepting physician is to [facility]. Condition is Fair. Problem is new. Symptoms have improved. dom
[2018-04-13] MEDS ORDERED: LORazepam 2 MG/ML VIAL ONE (20:23)
[2018-04-13] MEDS ORDERED: NA CHLORIDE 0.9% 1,000 ML ONE (20:23)
[2018-04-13] MEDS ORDERED: LEVETIRACETAM 500 MG/5 ML VIAL IV ONE ×2 (20:23→20:40)
[2018-04-13] MEDS ORDERED: NA CHLORIDE 0.9% 100 ML IV ONE (20:31)
[2018-04-13 20:33] LABS: Absolute Lymphocytes (CBC) 2.1 K/uL (0.7-4.9); Absolute Monocytes 0.7 K/uL (0.1-1.3); Absolute Neutrophil 7.4 K/uL (1.8-8.0); Basophils % 0.6 % (0-1.3); Eosinophils % 0.1 % (0-4.4); Hematocrit 33.2 % (36.0-45.0); Lymphocytes % 20.1 % (15.3-44.8); MCH 32.2 pg (27.0-35.0); MCV 93.2 fL (80-100); MPV 9.1 fL (7.6-11.3); RBC Red Blood Cell Count 3.57 M/uL (3.86-4.86)
[2018-04-13 20:50] LABS: Protime INR 1.03
[2018-04-13 21:03] LABS: Bicarbonate 18 mmol/L (21-32); Potassium 3.9 mmol/L (3.5-5.1); Sodium Level 138 mmol/L (136-145)
[2018-04-13 21:04] LABS: ALT/SGPT 15 U/L (12-78); AST/SGOT 18 U/L (15-37); Alkaline Phosphatase 65 U/L (45-117); BUN Blood Urea Nitrogen 6 mg/dL (7-18); Bilirubin Direct < 0.1 mg/dL (0-0.2); Bilirubin Total 0.1 mg/dL (0.2-1.0); Glucose Level 73 mg/dL (74-106)
[2018-04-13 21:05] LABS: Albumin 3.4 g/dL (3.4-5.0); Protein, Total 7.2 g/dL (6.4-8.2)
[2018-04-13 22:14] LABS: Barbiturates NEGATIVE (NEGATIVE); Benzodiazepines POSITIVE (NEGATIVE); Cocaine NEGATIVE (NEGATIVE); METHAMPHETAM NEGATIVE (NEGATIVE); Methadone NEGATIVE (NEGATIVE); Opiates NEGATIVE (NEGATIVE); Phencyclidine NEGATIVE (NEGATIVE); THC Cannibis NEGATIVE (NEGATIVE)
--- NOTE | 2018-04-15 07:06 | EKG ---
Test Date: 2018-04-13 Test Time: 21:09:51 [employer] Architect: BERNICE MEASUREMENT RESULTS: Intervals: Rate: 74 MD: 152 QRSD: 80 QT: 372 QTc: 412 [place]: P: 26 MD: 152 QRS: 48 T: 35 INTERPRETIVE STATEMENTS: Sinus rhythm with marked sinus arrhythmia Septal infarct, age undetermined Abnormal ECG Compared to ECG 04/12/2018 11:58:08 Myocardial infarct finding now present Sinus tachycardia no longer present Electronically Signed On 04-15-18 07:03:41 TECHNOLOGY SALES SPECIALIST by Juan Mearz
== END 2018-04-13 21:49 | disposition short-term general hospital (02) ==
LOC: ER 20:01
DX: O99.352 Diseases of the nervous system complicating pregnancy, second trimester (principal); G40.909 Epilepsy, unspecified, not intractable, without status epilepticus; O26.812 Pregnancy related exhaustion and fatigue, second trimester; O99.332 Smoking (tobacco) complicating pregnancy, second trimester; F17.210 Nicotine dependence, cigarettes, uncomplicated; O99.342 Other mental disorders complicating pregnancy, second trimester; F41.9 Anxiety disorder, unspecified; F43.10 Post-traumatic stress disorder, unspecified; O99.412 Diseases of the circulatory system complicating pregnancy, second trimester; I49.8 Other specified cardiac arrhythmias; R94.31 Abnormal electrocardiogram [ECG] [EKG]; Z3A.00 Weeks of gestation of pregnancy not specified; Z79.899 Other long term (current) drug therapy
CPT/HCPCS: 36415; 80048; 80076; 80307; 80320; 80329; 85025; 85610; 85730; 93005; 96365; 96375; 99285; J1953; J7030